=== PATIENT | male | born 1955 | race Caucasian/White ===

== ENCOUNTER 2023-01-04 18:44 | Inpatient (IN) | payer MEDICARE, SELFPAY ==
--- NOTE | ~2023-01-04 | XR_ITS ---
EXAMINATION: XR chest 1V DATE: 01/04/2023 19:12 INDICATION: Fall with left hip fracture TECHNIQUE: frontal view of the chest was obtained. COMPARISON: None FINDINGS: Linear and bandlike discoid atelectasis at the bilateral lung bases. There is also mild right apical pleural-parenchymal scarring. No other airspace opacities, pulmonary edema, pleural effusion or pneum othorax. Heart size is normal. Atherosclerotic aorta. A few old left rib fractures. IMPRESSION: 1. Mild right apical pleural-parenchymal scarring and mild bibasilar atelectasis. Reviewed, dictated and finalized at location A. ER DRIVER IMPRESSION: 1. Mild right apical pleural-parenchymal scarring and mild bibasilar atelectasi s.
--- NOTE | ~2023-01-04 | XR_ITS ---
EXAMINATION: XR hip LT 2V w AP pelvis DATE: 01/04/2023 19:12 INDICATION: Left hip pain post fall TECHNIQUE: Anteroposterior view of the pelvis and anteroposterior and cross-table lateral views of th e left hip were obtained. COMPARISON: None. FINDINGS: Transcervical fracture of the proximal left femur with 2 cm proximal migration, 20 degree varus angul ation and some external rotation. No other fractures identified. Mild osteoarthritis at the bilateral hip and sacroiliac joints. IMPRESSION: 1. Displaced, angulated and externally rotated transcervical fracture of the proximal left femur. Reviewed, dictated and finalized at location A. RAMMING DIRECTOR IMPRESSION: 1. Displaced, angulated and externally rotated transcervical fracture of the pr oximal left femur.
--- NOTE | ~2023-01-04 | XR_ITS ---
EXAMINATION: XR hip LT 1V DATE: 01/06/2023 11:29 INDICATION: Left hip replacement. Postop. TECHNIQUE: A single view of left hip was obtained. COMPARISON: Pelvis and left hip radiographs 01/04/2023 FINDINGS: There is a bipolar left hip hemiarthroplasty in near-anatomic alignment. No fracture. There is gas in the soft tissues, consistent with recent surgery. IMPRESSION: 1. Bipolar left hip hemiarthroplasty in near-anatomic alignment. Reviewed, dictated and finalized at location A. MA CENTER TECHNICIAN
[2023-01-04 18:42] VITALS: BP 174/84; PULSE 69; RESP 13; TEMP 36.6; O2SAT 100
--- NOTE | 2023-01-04 18:52 | PC.NURSE ---
Spoke to pts sister who states, please for the love of God do not give him Ativan. It makes him combative. Please put it in his chart as an allergy or an adverse reaction.
[2023-01-04] MEDS: fentaNYL CITRATE INJ (*CRX) 100 MCG/2 ML VIAL 50 MCG IV PUSH ×2 (19:43→22:25)
--- NOTE | 2023-01-04 19:51 | ED.FALL ---
HPI - Fall General Chief Complaint: Fall Stated Complaint: fall, hip fx Time Seen by Provider: 01/04/23 19:28 History of Present Illness HPI Narrative: This is a 67-year-old male, with history of arthritis, CHF and chronic pulmonary disease (disease requiring 4 L of oxygen at baseline), brought in by EMS after a fall at home with left hip pain. The patient states he was standing in his kitchen when he turned and felt a pop in the left hip and fell. He denies head injury or loss of consciousness. He denies preceding chest pain, palpitations or shortness of breath. He denies similar symptoms since then. He rates the pain 9/10 and is described as dull. He has no complaints at this time. Related Data Home Medications Medication Instructions Recorded Confirmed albuterol sulfate 90 mcg/actuation 2 puff inhalation QID 01/05/23 01/05/23 aerosol inhaler carvedilol 6.25 mg tablet 6.25 mg PO DAILY 01/05/23 01/05/23 finasteride 5 mg tablet 5 mg PO DAILY 01/05/23 01/05/23 guaifenesin 600 mg tablet, 600 mg PO BID 01/05/23 01/05/23 extended release 12 hr morphine 15 mg tablet,extended 15 mg PO BID 01/05/23 01/05/23 release oxycodone 10 mg tablet 10 mg PO Q4H PRN PAIN 01/05/23 01/05/23 prednisone 10 mg tablet 10 mg PO DAILY 01/05/23 01/05/23 sacubitril 24 mg-valsartan 26 mg 1 tablet PO DAILY 01/05/23 01/05/23 tablet (Entresto) tamsulosin 0.4 mg capsule 0.4 mg PO HS 01/05/23 01/05/23 Allergies Allergy/AdvReac Type Severity Reaction Status Date / Time hydrocodone Allergy Unknown Unknown Verified 01/04/23 18:57 lorazepam [From Ativan] Allergy Irritable Verified 01/04/23 22:43 quetiapine [From Seroquel] Allergy Confusion Verified 01/04/23 18:58 CODEINE Allergy Unknown Unknown Uncoded 01/04/23 18:57 NONE Allergy Unknown Unknown Uncoded 01/04/23 18:57 CODEINE (Generic Allergy) Allergy Y Uncoded 01/04/23 18:57 Review of Systems Review of Systems: CONSTITUTIONAL: Denies fever, chills, or sweats. CARDIOVASCULAR: Denies chest pain, palpitations, or edema. RESPIRATORY: Chronic dyspnea denies cough GASTROINTESTINAL: Denies abdominal pain, nausea, vomiting, or diarrhea. GENITOURINARY: Denies dysuria or hematuria. SKIN: Denies rash or itching. MUSCULOSKELETAL: Left hip pain denies back pain, or myalgia. NEUROLOGIC: Denies headache, numbness, dizziness, or weakness. PSYCHIATRIC: Denies anxiety or depression. [facility] Past Medical History Medical History (Updated 01/05/23 @ 02:42 by Yosvany Meléndez MD) Arthritis Chronic pulmonary disease Congestive heart failure Social History Social History (Updated 01/04/23 @ 20:01 by Yosvany Meléndez MD) Smoking packs per day: 0.3 Smoking cigarettes per day: 6.0 Smoking status: Current every day smoker Tobacco type: cigarettes Alcohol intake: current Drinks per week: 30 Substance use: current Substance use type: marijuana Last use: 01/04/2023 Lack of Transportation: No Lack of Food: Never True Current Housing: I Have Housing Concerned About Future Housing: No Difficulty Paying Gas/Electric Bills: No Difficulty Paying for Meds: No Currently Unemployed: No Education: Trade/Vocational Certificate Difficulty w/ Childcare or Family Care: No Spiritual care concerns: No Exam Narrative: GENERAL: Well-appearing, thin, and in no acute distress. HEAD: Normocephalic, atraumatic. EYES: PERRLA and EOMI. ENT: Nares clear, no rhinorrhea or epistaxis. Mucous membranes dry. Oropharynx without tonsillar hypertrophy exudate or other lesions. Bilateral TMs pearly dinh nonbulging. No hematemesis NECK: Supple. No midline spine tenderness to palpation, no step-off or crepitus CHEST: Clear to auscultation. No respiratory distress. No wheezes rales or rhonchi HEART: Regular rate and rhythm. No murmur heard. Normal peripheral pulses. ABDOMEN: Soft, nontender, nondistended, normal active bowel sounds. EXTREMITIES: The left leg is shortened and externa
[2023-01-04 20:33] LABS: Basophils Percent Auto 0.2 % (0.2-1.2); Hematocrit 34.3 % (42.0-52.0); Hemoglobin 10.6 g/dL (14.0-18.0); Immature Granulocyte Absolute 0.17 K/mm3 (0.00-0.031); Immature Granulocyte Percent A 1.3 % (0-0.5); Lymphocytes Absolute Auto 1.46 K/mm3 (0.9-3.2); Lymphocytes Percent Auto 10.8 % (18.3-44.2); Mean Corpuscular HGB Conc 30.9 g/dl (32-36); Mean Corpuscular Hemoglobin 30.9 pg (26-34); Mean Platelet Volume 10.2 fl (7.4-10.4); Monocytes Absolute Auto 1.2 K/mm3 (0.1-0.6); Monocytes Percent Auto 8.6 % (2.6-8.5); Neutrophils Absolute Auto 10.7 K/mm3 (1.3-6.7); Neutrophils Percent Auto 79.1 % (45.5-73.1); Platelet Count Result 254 k/mm3 (150-375); Red Blood Count 3.43 M/mm3 (4.6-6.20); Red Cell Distribution Width 14.3 % (11.5-14.5); White Blood Count 13.5 K/mm3 (4.5-10.0)
[2023-01-04 20:45] LABS: INR 0.9; Prothrombin Time 12.2 Seconds (11.1-14.7)
[2023-01-04 20:46] LABS: Partial Thromboplastin Time 26.3 SECONDS (22.3-36.8)
[2023-01-04 20:59] VITALS: BP 181/87; PULSE 72; RESP 12; O2SAT 95
[2023-01-04 21:09] LABS: Alanine Aminotransferase 24 U/L (6-50); Albumin Level 3.8 g/dL (3.5-5.1); Alkaline Phosphatase 58 U/L (38-126); Anion Gap 7 mmol/L (8-16); Aspartate Amino Transferase 22 U/L (17-59); Bilirubin,Total 0.3 mg/dL (0.2-1.3); Blood Urea Nitrogen 24 mg/dL (9-20); Calcium 8.8 mg/dL (8.4-10.2); Carbon Dioxide 27 mmol/L (22-30); Chloride 101 mmol/L (98-107); Estimated CRCL calculation 93 ml/min; Estimated Glomerular Filt Rate > 60; Glucose 118 mg/dL (65-110); Potassium 4.9 mmol/L (3.4-5.0); Sodium 135 mmol/L (137-145)
[2023-01-04 21:44] VITALS: PULSE 73; RESP 15
[2023-01-04] MEDS: ALBUTEROL SULFATE NEB 2.5 MG/3 ML INH INHALATION (21:44)
[2023-01-04] MEDS: IPRATROPIUM BR 0.02% INH SOLN 0.5 MG/2.5 ML VIAL INHALATION (21:44)
--- NOTE | 2023-01-04 21:49 | PCRCNOTE ---
Updraft treatment delayed due to stat ED orders not being delivered via [facility]era.
[2023-01-04 21:52] VITALS: PULSE 70; RESP 14
[2023-01-04] MEDS: oxyCODONE HCL (*CRX) 5 MG TAB IR 10 MG PO (22:25)
[2023-01-04 22:34] VITALS: BP 175/94; PULSE 86; RESP 12; O2SAT 99
--- NOTE | 2023-01-04 22:43 | PC.NURSE ---
Per family and patient, Seroquel and Ativan makes patient very angry and agitated.
[2023-01-04 22:45] VITALS: BP 167/87; PULSE 68; RESP 10; O2SAT 98
--- NOTE | 2023-01-04 23:15 | PC.NURSE ---
Assumed care of pt. Report from SHELBI Rhodes. Pt sleeping on right side, resp even and nonlabored.
[2023-01-05] VITALS (22 sets, daily range): BP systolic 151–163; BP diastolic 62–75; PULSE 70–87; RESP 15–18; TEMP 36.4–37.1; O2SAT 93–98; BMI 21.3
--- NOTE | 2023-01-05 00:29 | ADMGEN ---
This patient, Tom Juarez, was admitted to Medical Room 246-. Patient/family oriented to hospital policies and general routines including ID bracelet, bed and alarms, visiting hours, pain management, procedures, bathroom and other care routines, personal items, smoking policy, room service/diet, and visiting hours. Information on how to activate the Rapid Response Team has been discussed. Patient/Family are encouraged to report perceived risks to care and to ask questions if they do not understand what they are told or what they should do.
--- NOTE | 2023-01-05 00:47 | PM.IMHP ---
H&P: HPI History of Present Illness Date/Time: 01/05/23 00:47 Chief Complaint: hip fx Narrative: This is a 67-year-old male with end-stage COPD/emphysema on supplemental oxygen at home 5 L by nasal cannula patient had a twist of his hip when it popped out and preliminary workup shows fracture EXAMINATION: XR hip LT 2V w AP pelvis DATE: 01/04/2023 19:12 INDICATION: Left hip pain post fall TECHNIQUE: Anteroposterior view of the pelvis and anteroposterior and cross-table lateral views of the left hip were obtained. COMPARISON: None. FINDINGS: Transcervical fracture of the proximal left femur with 2 cm proximal migration, 20 degree varus angulation and some external rotation. No other fractures identified. Mild osteoarthritis at the bilateral hip and sacroiliac joints. IMPRESSION: 1. Displaced, angulated and externally rotated transcervical fracture of the proximal left femur. EXAMINATION: XR chest 1V DATE: 01/04/2023 19:12 INDICATION: Fall with left hip fracture TECHNIQUE: frontal view of the chest was obtained. COMPARISON: None FINDINGS: Linear and bandlike discoid atelectasis at the bilateral lung bases. There is also mild right apical pleural-parenchymal scarring. No other airspace opacities, pulmonary edema, pleural effusion or pneumothorax. Heart size is normal. Atherosclerotic aorta. A few old left rib fractures. IMPRESSION: 1. Mild right apical pleural-parenchymal scarring and mild bibasilar atelectasis. Review of Systems Review of Systems: left hip pain Constitutional: Constitutional: Denies chills, Denies fatigue, Denies fever(s), Denies malaise, Denies night sweats and Denies weakness Eyes: Eyes: Denies change in vision ENT: Denies dysphagia and Denies odynophagia Cardiovascular: Cardiovascular: Denies chest pain, Denies radiating jaw, neck or arm pain and Denies palpitations Respiratory: Respiratory: Denies cough, Denies excessive phlegm production, Reports dyspnea and Reports wheezing Gastrointestinal: Gastrointestinal: Denies abdominal pain, Denies dyspepsia, Denies heartburn, Denies diarrhea, Denies nausea and Denies vomiting Genitourinary: Genitourinary: Denies dysuria Musculoskeletal: Musculoskeletal: Reports deformity and Reports arthralgias (L hip) Integumentary/Breasts: Skin/Breast: Denies rash Neurologic: Denies focal weakness and Denies Sensory deficit (Neuro) Psychiatric: Psychiatric: Reports no additional psychiatric complaints and Reports as per HPI Endocrine: Endocrine: Denies cold intolerance, Denies flushing, Denies heat intolerance, Denies polyphagia, Denies polydipsia and Denies palpitations Hematologic/Lymphatic: Hematologic/Lymphatic: Reports no additional hematologic/lymphatic complaints and Reports as per HPI Allergic/Immunologic: Allergic/Immunologic: Reports no additional allergic/immunologic complaints and Reports as per HPI PMFSH Past Medical History Medical History (Updated 01/05/23 @ 00:57 by Maxx Wilson MD) Arthritis Chronic pulmonary disease Congestive heart failure Social History Social History (Updated 01/04/23 @ 20:01 by Yosvany Meléndez MD) Smoking packs per day: 0.3 Smoking cigarettes per day: 6.0 Smoking status: Current every day smoker Tobacco type: cigarettes Alcohol intake: current Drinks per week: 30 Substance use: current Substance use type: marijuana Last use: 01/04/2023 Lack of Transportation: No Lack of Food: Never True Current Housing: I Have Housing Concerned About Future Housing: No Difficulty Paying Gas/Electric Bills: No Difficulty Paying for Meds: No Currently Unemployed: No Education: Trade/Vocational Certificate Difficulty w/ Childcare or Family Care: No Spiritual care concerns: No Meds Home Medications and Allergies Home Medications Medication Instructions Recorded Confirmed Type albuterol sulfate 90 mcg/actuation 2 puff inhalation QID 01/05/2301/05
[2023-01-05] MEDS: ALBUTEROL SULFATE NEB 2.5 MG/3 ML INH INHALATION ×4 (02:30→20:11)
[2023-01-05] MEDS: HYDROmorphone HCL INJ (*CRX) 1 MG/ML SYR (02:30)
[2023-01-05] MEDS: IPRATROPIUM BR 0.02% INH SOLN 0.5 MG/2.5 ML VIAL INHALATION ×4 (02:30→20:11)
[2023-01-05] MEDS: TAMSULOSIN HCL 0.4 MG CAPSULE PO ×2 (03:30→20:06)
[2023-01-05] MEDS: oxyCODONE HCL (*CRX) 5 MG TAB IR 10 MG PO ×4 (03:31→22:27)
[2023-01-05] MEDS: HYDROmorphone HCL INJ (*CRX) 1 MG/ML SYR IV PUSH ×4 (05:18→20:45)
[2023-01-05 06:12] LABS: Basophils Percent Auto 0.4 % (0.2-1.2); Eosinophils Absolute Auto 0.1 K/mm3 (0-0.3); Eosinophils Percent Auto 1.2 % (0-4.4); Hematocrit 33.1 % (42.0-52.0); Hemoglobin 10.6 g/dL (14.0-18.0); Immature Granulocyte Absolute 0.11 K/mm3 (0.00-0.031); Lymphocytes Absolute Auto 2.42 K/mm3 (0.9-3.2); Lymphocytes Percent Auto 21.5 % (18.3-44.2); Mean Corpuscular Hemoglobin 31.1 pg (26-34); Mean Corpuscular Volume 97.1 fl (80-100); Mean Platelet Volume 9.6 fl (7.4-10.4); Monocytes Absolute Auto 1.1 K/mm3 (0.1-0.6); Monocytes Percent Auto 9.3 % (2.6-8.5); Neutrophils Absolute Auto 7.5 K/mm3 (1.3-6.7); Neutrophils Percent Auto 66.6 % (45.5-73.1); Platelet Count Result 232 k/mm3 (150-375); Red Blood Count 3.41 M/mm3 (4.6-6.20); White Blood Count 11.3 K/mm3 (4.5-10.0)
[2023-01-05 06:25] LABS: Anion Gap 9 mmol/L (8-16); Blood Urea Nitrogen 18 mg/dL (9-20); Calcium 8.7 mg/dL (8.4-10.2); Carbon Dioxide 29 mmol/L (22-30); Chloride 99 mmol/L (98-107); Estimated CRCL calculation 108 ml/min; Estimated Glomerular Filt Rate > 60; Glucose 99 mg/dL (65-110); Potassium 3.9 mmol/L (3.4-5.0); Sodium 137 mmol/L (137-145)
[2023-01-05] MEDS: carvediloL 6.25 MG TABLET PO ×2 (07:59→20:06)
[2023-01-05] MEDS: FINASTERIDE 5 MG TABLET PO (07:59)
[2023-01-05] MEDS: predniSONE 10 MG TABLET PO (08:00)
[2023-01-05] MEDS: guaiFENesin 12 HR 600 MG TABCR PO ×2 (08:00→20:07)
[2023-01-05] MEDS: SACUBITRIL/VALSARTAN 24-26 MG TABLET 1 TAB PO ×2 (08:00→20:06)
[2023-01-05] MEDS: MORPHINE SULFATE (*CRX) 15 MG TABCR PO (08:01)
--- NOTE | 2023-01-05 09:51 | PM.CNOR ---
Assessment and Plan Assessment and plan (1) Closed fracture of neck of left femur: Qualifiers: Encounter type: initial encounter Qualified Code(s): S72.002A - Fracture of unspecified part of neck of left femur, initial encounter for closed fracture Code(s): S72.002A - Fracture of unspecified part of neck of left femur, initial encounter for closed fracture Status: Acute Assessment and Plan: History, exam and radiographs reviewed with the patient and his sister at bedside who is medical power of ip attorney. Patient is alert and oriented x3 at time of exam. Radiographs of the left hip reveal a displaced, angulated and externally rotated transcervical fracture of the proximal left femur. The fracture type and injury as well as radiographs discussed with the patient and family. Operative and nonoperative treatment options reviewed. Risk of nonunion, malunion or late displacement discussed. Stiffness, pain and possible dysfunction of the joint discussed. The patients questions were answered. The patient desires operative treatment. Discussed Left Hip Hemiarthroplasty by Dr. Oconnor Risks of surgery including but not limited to neurovascular damage, wound complications, blood clot, pulmonary embolus, stroke, myocardial infarction, anesthetic risks up to and including were reviewed. Patient family understand increase risk of given patient's current medical condition. Continued pain and possible dysfunction were explained. No guarantees were offered. The patient understands and wishes to proceed. Plan: Left Hip Hemiarthroplasty by Dr. Oconnor NPO at midnight. Obtain consent. Pain control. Bedrest. HOLD anticoagulation. Dispo: Patient will require [facility] vs. SNF at discharge. (2) Congestive heart failure: Code(s): I50.9 - Heart failure, unspecified Status: Acute (3) COPD (chronic obstructive pulmonary disease): Qualifiers: COPD type: unspecified COPD Qualified Code(s): J44.9 - Chronic obstructive pulmonary disease, unspecified Code(s): J44.9 - Chronic obstructive pulmonary disease, unspecified Status: Acute Plan Discussed history, exam, radiographs and surgical planning with attending physician and consult his surgeon, Dr. Oconnor. Agrees with current plan is indicated above. No further recommendations at this time. Plan for surgical intervention on January 06. History of Present Illness HPI Consult date: 01/05/23 Chief complaint: Lt Femur Neck Fracture Narrative: 67-year-old male presented to the emergency room from home after a fall, hearing his left hip pop and inability to bear weight. Patient is in end stage COPD and CHF on hospice. Hospice was terminated upon admission to the hospital. Radiographs of the left hip reveal a displaced, angulated and externally rotated transcervical fracture of the proximal left femur. Orthopedic consult requested. Patient admitted for further evaluation and pain control. Review of Systems Constitutional: Constitutional: Reports no additional constitutional complaints, Denies chills, Denies fatigue, Denies fever(s), Denies headache(s) and Denies weakness Eyes: Eyes: Denies change in vision ENT: Reports Normal hearing present and Denies headache(s) Cardiovascular: Cardiovascular: Denies chest pain Gastrointestinal: Gastrointestinal: Denies constipation, Denies diarrhea, Denies nausea and Denies vomiting Genitourinary: Genitourinary: Denies hematuria and Denies dysuria Musculoskeletal: Musculoskeletal: Reports as per HPI, Denies numbness and Denies tingling Integumentary/Breasts: Skin/Breast: Reports as per HPI Neurologic: Reports as per HPI, Reports Normal hearing present, Denies headache(s), Denies numbness, Denies tingling and Denies weakness Psychiatric: Psychiatric: Reports no additional psychiatric complaints Endocrine: Endocrine: Reports no additional endocrine complaints and Denies fatigue Dustin
--- NOTE | 2023-01-05 10:45 | PM.IMPN ---
Progress Note: A&P Assessment and Plan (1) Closed fracture of neck of left femur: Qualifiers: Encounter type: initial encounter Qualified Code(s): S72.002A - Fracture of unspecified part of neck of left femur, initial encounter for closed fracture Code(s): S72.002A - Fracture of unspecified part of neck of left femur, initial encounter for closed fracture Status: Acute Assessment and Plan: Patient had a fall at home resulting in a fracture of the left femur. Orthopedics consulted. DVT prophylaxis, PT and OT per Orthopedic recommendations. Analgesics p.r.n.. (2) End stage chronic obstructive pulmonary disease: Code(s): J44.9 - Chronic obstructive pulmonary disease, unspecified Status: Acute Assessment and Plan: Patient is in hospice and plans to return once he gets home. Patient on a prednisone taper from a recent treatment of COPD exacerbation. Prednisone taper: 20 mg through 01/07 then 10 mg for 5 days (finish on 01/12) Continue home meds (3) Congestive heart failure: Code(s): I50.9 - Heart failure, unspecified Status: Acute Assessment and Plan: Continue Coreg and Entresto Subjective Date/time seen: 01/05/23 10:45 Interval history: Was in the room at the same time with nurse practitioner from Orthopedics. Patient is wanting surgery at this time. I discussed with patient that he will need rehab after after his surgery and he is agreeable to this. He was on hospice for his end-stage COPD and CHF although this was terminated when he came to the hospital. The plan is to go back on hospice care once he returns home eventually. He ambulates with a cane at home and is pretty much independent. Hospice comes to his house twice weekly. He is having active left hip pain at the time of evaluation. Exam Narrative: GENERAL: Comfortable, no acute distress HENMT: moist mucous membranes EYES: EOM intact b/l RESPIRATORY: clear to auscultation although distant breath sounds CARDIO: RRR GI: soft, nontender, bowel sounds present SKIN: no rashes EXTREMITIES: no edema, redness or tenderness Objective Data Vital Signs Vital Signs: Vital Signs - 24 hr 01/04/23 18:42 01/04/23 20:59 01/04/23 21:44 Temperature 97.9 F Pulse Rate 69 72 73 Respiratory Rate 13 12 15 Blood Pressure 174/84 H 181/87 H Pulse Oximetry 100 95 Oxygen Delivery Nasal Cannula Oxygen Flow Rate 4 01/04/23 21:52 01/04/23 22:34 01/04/23 22:45 Temperature Pulse Rate 70 86 68 Respiratory Rate 14 12 10 L Blood Pressure 175/94 H 167/87 H Pulse Oximetry 99 98 Oxygen Delivery Oxygen Flow Rate 01/05/23 00:29 01/05/23 00:18 01/05/23 02:30 Temperature 97.5 F L Pulse Rate 70 71 Respiratory Rate 17 Blood Pressure 157/67 H Pulse Oximetry 96 95 Oxygen Delivery Nasal Cannula Oxygen Flow Rate 4 01/05/23 02:30 01/05/23 03:35 01/05/23 04:09 Temperature Pulse Rate 70 71 76 Respiratory Rate 18 18 Blood Pressure Pulse Oximetry Oxygen Delivery Oxygen Flow Rate 01/05/23 05:21 01/05/23 07:59 01/05/23 08:40 Temperature 98.0 F Pulse Rate 72 85 73 Respiratory Rate 18 18 Blood Pressure 151/62 H Pulse Oximetry 96 Oxygen Delivery Oxygen Flow Rate 01/05/23 08:54 Temperature Pulse Rate 74 Respiratory Rate 18 Blood Pressure Pulse Oximetry Oxygen Delivery Oxygen Flow Rate Intake/Output Intake/Output: Intake & Output 01/02/23 01/03/23 01/04/23 01/05/23 23:59 23:59 23:59 23:59 Output Total 1500 Balance -1500 Meds/Results Medications: Active Medications Generic Name Dose Route Start Last Admin Trade Name Freq PRN Reason Stop Dose Admin Al Hydrox/Mg Hydrox/Simethicone 30 ml 01/05/23 00:46 Mag Hydrox/Al Hydrox/Simeth 30 Ml Udc PO Q6H PRN Indigestion Albuterol 2.5 mg 01/05/23 02:00 01/05/23 08:45 Albuterol Sulfate Neb 2.5 M
--- NOTE | 2023-01-05 17:27 | WPDANESEPP ---
Anes - Eval Pre Procedure Procedure: Operation Date: 01/06/23 09:00 Proposed Procedures p Left Bipolar Hip Replacement - Brian Oconnor MD Date/Time: 01/05/23 17:27 Pre Op Diagnosis: Lt Femur Neck Fracture Patient Data Age: 67 Gender: M Height: 1.75 m Weight: 65.5 kg Last Vital Signs Temp 97.6 F 01/05/23 14:00 Pulse 83 01/05/23 14:00 Resp 15 01/05/23 14:00 BP 163/74 H 01/05/23 14:00 Pulse Ox 93 01/05/23 14:00 O2 Del Method Nasal Cannula 01/05/23 13:39 O2 Flow Rate 4 01/05/23 13:39 Allergies Allergy/AdvReac Type Severity Reaction Status Date / Time hydrocodone Allergy Unknown Unknown Verified 01/04/23 18:57 lorazepam [From Ativan] Allergy Irritable Verified 01/04/23 22:43 quetiapine [From Seroquel] Allergy Confusion Verified 01/04/23 18:58 CODEINE Allergy Unknown Unknown Uncoded 01/04/23 18:57 NONE Allergy Unknown Unknown Uncoded 01/04/23 18:57 CODEINE (Generic Allergy) Allergy Y Uncoded 01/04/23 18:57 Home Medications Medication Instructions Recorded Confirmed Type albuterol sulfate 90 mcg/actuation 2 puff inhalation QID 01/05/23 01/05/23 History aerosol inhaler carvedilol 6.25 mg tablet 6.25 mg PO DAILY 01/05/23 01/05/23 History finasteride 5 mg tablet 5 mg PO DAILY 01/05/23 01/05/23 History guaifenesin 600 mg tablet, 600 mg PO BID 01/05/23 01/05/23 History extended release 12 hr morphine 15 mg tablet,extended 15 mg PO BID 01/05/23 01/05/23 History release oxycodone 10 mg tablet 10 mg PO Q4H PRN PAIN 01/05/23 01/05/23 History prednisone 10 mg tablet 10 mg PO DAILY 01/05/23 01/05/23 History sacubitril 24 mg-valsartan 26 mg 1 tablet PO DAILY 01/05/23 01/05/23 History tablet (Entresto) tamsulosin 0.4 mg capsule 0.4 mg PO HS 01/05/23 01/05/23 History Laboratory Tests 01/04/23 01/05/23 20:20 05:58 WBC 13.5 H K/mm3 11.3 H K/mm3 (4.5-10.0) (4.5-10.0) RBC 3.43 L M/mm3 3.41 L M/mm3 (4.6-6.20) (4.6-6.20) Hgb 10.6 L g/dL 10.6 L g/dL (14.0-18.0) (14.0-18.0) Hct 34.3 L % 33.1 L % (42.0-52.0) (42.0-52.0) MCV 100.0 fl 97.1 fl (80-100) (80-100) MCH 30.9 pg 31.1 pg (26-34) (26-34) MCHC 30.9 L g/dl 32.0 g/dl (32-36) (32-36) RDW 14.3 % 14.0 % (11.5-14.5) (11.5-14.5) Plt Count 254 k/mm3 232 k/mm3 (150-375) (150-375) MPV 10.2 fl 9.6 fl (7.4-10.4) (7.4-10.4) Immature Gran % (Auto) 1.3 H % 1.0 H % (0-0.5) (0-0.5) Neut % (Auto) 79.1 H % 66.6 % (45.5-73.1) (45.5-73.1) Lymph % (Auto) 10.8 L % 21.5 % (18.3-44.2) (18.3-44.2) [place] % (Auto) 8.6 H % 9.3 H % (2.6-8.5) (2.6-8.5) Eos % (Auto) 0.0 % 1.2 % (0-4.4) (0-4.4) Baso % (Auto) 0.2 % 0.4 % (0.2-1.2) (0.2-1.2) Lymph # (Auto) 1.46 K/mm3 2.42 K/mm3 (0.9-3.2) (0.9-3.2) [place] # (Auto) 1.2 H K/mm3 1.1 H K/mm3 (0.1-0.6) (0.1-0.6) Eos # (Auto) 0.0 K/mm3 0.1 K/mm3 (0-0.3) (0-0.3) Baso # (Auto) 0.0 K/mm3 0.0 K/mm3 (0.0-0.1) (0.0-0.1) Abs Immat Gran (auto) 0.17 H K/mm3 0.11 H K/mm3 (0.00-0.031) (0.00-0.031) Absolute Neuts (auto) 10.7 H K/mm3 7.5 H K/mm3 (1.3-6.7) (1.3-6.7) Absolute Nucleated RBC 0.0 K/mm3 0.0 K/mm3 (0.0-0.012) (0.0-0.012) Nucleated RBC % 0.0 % 0.0 % (0.0-0.2) (0.0-0.2) PT 12.2 Seconds (11.1-14.7) INR 0.9 APTT 26.3 SECONDS (22.3-36.8) Sodium 135 L mmol/L 137 mmol/L (137-145) (137-145) Potassium 4.9 mmol/L 3.9 mmol/L (3.4-5.0) (3.4-5.0) Chloride 101 mmol/L 99 mmol/L (98-107) (98-107) Carbon Dioxide 27 mmol/L 29 mmol/L (22-30) (22-30) Anion Gap 7 L mmol/L 9 mmol/L (8-16) (8-16) BUN 24 H mg/dL 18 mg/dL (9-20) (9-20) Creatinine 0.60 L mg/dL 0.50 L mg/dL (0.7-1.3) (0.7-1.3) Estim Creat Clear Calc 93 ml/min 108 ml/min Estimated GFR > 60 > 60 (59 - ) (59 - ) Glucose 118 H mg/dL 99 mg/dL (65-110) (65-110) Calcium 8.
[2023-01-05] MEDS: KETOROLAC 15 MG/ML VIAL (*BKC) IV PUSH (18:08)
[2023-01-05] MEDS: diazePAM (*CRX) 5 MG TABLET PO (20:06)
[2023-01-06] VITALS (19 sets, daily range): BP systolic 86–163; BP diastolic 57–77; PULSE 66–87; RESP 12–20; TEMP 36.2–37.2; O2SAT 95–100
[2023-01-06] MEDS: ALBUTEROL SULFATE NEB 2.5 MG/3 ML INH INHALATION ×3 (02:41→13:05)
[2023-01-06] MEDS: IPRATROPIUM BR 0.02% INH SOLN 0.5 MG/2.5 ML VIAL INHALATION ×2 (02:41→07:06)
[2023-01-06] MEDS: oxyCODONE HCL (*CRX) 5 MG TAB IR 10 MG PO (05:07)
--- NOTE | 2023-01-06 06:04 | PC.NURSE ---
pt crawling out of bed multiple times throughout the night (01/06). Pt redirected multiple times and was unable to comprehend instructions.
[2023-01-06 06:06] LABS: Hematocrit 33.2 % (42.0-52.0); Hemoglobin 11.1 g/dL (14.0-18.0); Mean Corpuscular HGB Conc 33.4 g/dl (32-36); Mean Corpuscular Hemoglobin 30.8 pg (26-34); Mean Corpuscular Volume 92.2 fl (80-100); Mean Platelet Volume 9.8 fl (7.4-10.4); Platelet Count Result 244 k/mm3 (150-375); Red Cell Distribution Width 13.6 % (11.5-14.5); White Blood Count 11.4 K/mm3 (4.5-10.0)
[2023-01-06 06:22] LABS: Alanine Aminotransferase 18 U/L (6-50); Albumin Level 3.5 g/dL (3.5-5.1); Alkaline Phosphatase 73 U/L (38-126); Anion Gap 7 mmol/L (8-16); Aspartate Amino Transferase 19 U/L (17-59); Bilirubin,Total 0.7 mg/dL (0.2-1.3); Blood Urea Nitrogen 17 mg/dL (9-20); Calcium 8.7 mg/dL (8.4-10.2); Carbon Dioxide 29 mmol/L (22-30); Chloride 94 mmol/L (98-107); Estimated CRCL calculation 108 ml/min; Estimated Glomerular Filt Rate > 60; Glucose 121 mg/dL (65-110); Potassium 3.7 mmol/L (3.4-5.0); Sodium 130 mmol/L (137-145)
--- NOTE | 2023-01-06 07:34 | WPDHPUPDATE1 ---
History and Physical Update Update Date/Time: 01/06/23 07:34 History and Physical has been reviewed, including an updated exam of the patient. There are NO changes in the patient's condition. Risks, benefits, and alternatives have been discussed and questions answered. Patient agrees to proceed with procedure.
--- NOTE | 2023-01-06 07:43 | ECG_ITS ---
Measurements Intervals [place] Rate: 86 P: 66 SD: 161 QRS: -34 QRSD: 146 T: 111 QT: 418 QTc: 503 Interpretive Statements SINUS RHYTHM ATRIAL PREMATURE COMPLEX LEFT AXIS DEVIATION LEFT BUNDLE BRANCH BLOCK BASELINE ARTIFACT- I, II, III ABNORMAL ECG NO PREVIOUS ECG AVAILABLE FOR COMPARISON Electronically Signed On 01-06-2023 9:15:36 [employer] by Lamont Valdivia D.O.
[2023-01-06] MEDS: predniSONE 10 MG TABLET PO (08:08)
[2023-01-06] MEDS: carvediloL 6.25 MG TABLET PO ×2 (08:08→20:33)
[2023-01-06] MEDS: FINASTERIDE 5 MG TABLET PO (08:09)
[2023-01-06] MEDS: SACUBITRIL/VALSARTAN 24-26 MG TABLET 1 TAB PO ×2 (08:09→20:35)
--- NOTE | 2023-01-06 08:40 | PC.NURSE ---
To OR per bed, IV left forearm. Report given to Lelia RN.
[2023-01-06] MEDS: TRANEXAMIC ACID 1,000MG/ISO100 1,000 MG/100 ML BAG 200 MG IVPB (08:50)
--- NOTE | 2023-01-06 09:10 | WPDANESEPPF ---
Anes - Initial Pre Proc Eval Procedure: Operation Date: 01/06/23 09:00 Proposed Procedures p Left Bipolar Hip Replacement - Brian Oconnor MD Date/Time: 01/06/23 09:10 Surgeon: Cindy Ojeda PA-C Pre Op Diagnosis: Lt Femur Neck Fracture Patient Data Age: 67 Gender: M Height: 1.75 m Weight: 65.5 kg Last Vital Signs Temp 37.1 C 01/06/23 05:07 Pulse 86 01/06/23 08:08 Resp 18 01/06/23 07:20 BP 160/73 H 01/06/23 05:07 Pulse Ox 97 01/06/23 07:10 O2 Del Method Nasal Cannula 01/06/23 07:10 O2 Flow Rate 4 01/06/23 07:10 Allergies Allergy/AdvReac Type Severity Reaction Status Date / Time hydrocodone Allergy Unknown Unknown Verified 01/04/23 18:57 lorazepam [From Ativan] Allergy Irritable Verified 01/04/23 22:43 quetiapine [From Seroquel] Allergy Confusion Verified 01/04/23 18:58 CODEINE Allergy Unknown Unknown Uncoded 01/04/23 18:57 NONE Allergy Unknown Unknown Uncoded 01/04/23 18:57 CODEINE (Generic Allergy) Allergy Y Uncoded 01/04/23 18:57 Home Medications Medication Instructions Recorded Confirmed Type albuterol sulfate 90 mcg/actuation 2 puff inhalation QID 01/05/23 01/05/23 History aerosol inhaler carvedilol 6.25 mg tablet 6.25 mg PO DAILY 01/05/23 01/05/23 History finasteride 5 mg tablet 5 mg PO DAILY 01/05/23 01/05/23 History guaifenesin 600 mg tablet, 600 mg PO BID 01/05/23 01/05/23 History extended release 12 hr morphine 15 mg tablet,extended 15 mg PO BID 01/05/23 01/05/23 History release oxycodone 10 mg tablet 10 mg PO Q4H PRN PAIN 01/05/23 01/05/23 History prednisone 10 mg tablet 10 mg PO DAILY 01/05/23 01/05/23 History sacubitril 24 mg-valsartan 26 mg 1 tablet PO DAILY 01/05/23 01/05/23 History tablet (Entresto) tamsulosin 0.4 mg capsule 0.4 mg PO HS 01/05/23 01/05/23 History Laboratory Tests 01/06/23 05:50 WBC 11.4 H K/mm3 (4.5-10.0) RBC 3.60 L M/mm3 (4.6-6.20) Hgb 11.1 L g/dL (14.0-18.0) Hct 33.2 L % (42.0-52.0) MCV 92.2 D fl (80-100) MCH 30.8 pg (26-34) MCHC 33.4 g/dl (32-36) RDW 13.6 % (11.5-14.5) Plt Count 244 k/mm3 (150-375) MPV 9.8 fl (7.4-10.4) Sodium 130 L mmol/L (137-145) Potassium 3.7 mmol/L (3.4-5.0) Chloride 94 L mmol/L (98-107) Carbon Dioxide 29 mmol/L (22-30) Anion Gap 7 L mmol/L (8-16) BUN 17 mg/dL (9-20) Creatinine 0.50 L mg/dL (0.7-1.3) Estim Creat Clear Calc 108 ml/min Estimated GFR > 60 (59 - ) Glucose 121 H mg/dL (65-110) Calcium 8.7 mg/dL (8.4-10.2) Total Bilirubin 0.7 mg/dL (0.2-1.3) AST 19 U/L (17-59) ALT 18 U/L (6-50) Alkaline Phosphatase 73 U/L (38-126) Total Protein 6.0 L g/dL (6.3-8.2) Albumin 3.5 g/dL (3.5-5.1) Patient hx anesthesia problems: none Family hx anesthesia problems: none Results Review: All pre-operative results and documents have been reviewed as part of the pre-operative evaluation. [facility] Past Medical History Medical History Arthritis BPH (benign prostatic hyperplasia) Chronic pulmonary disease Closed fracture of neck of left femur Congestive heart failure COPD (chronic obstructive pulmonary disease) CVA (cerebral vascular accident) End stage chronic obstructive pulmonary disease Hypertension Marijuana smoker Smoker Social History Social History Smoking packs per day: 0.3 Smoking cigarettes per day: 6.0 Smoking status: Current every day smoker Tobacco type: cigarettes Alcohol intake: current Drinks per week: 30 Substance use: current Substance use type: marijuana Last use: 01/04/2023 Lack of Transportation: No Lack of Food: Never True Current Housing: I Have Housing Concerned About Future Housing: No Difficulty Paying Gas/Electric Bills: No Difficulty Paying for Meds: No Currently Unemployed: No Education: Trade/Vocational C
[2023-01-06] MEDS: LACTATED RINGERS 1,000 ML 30 ML IV CONT (09:30)
[2023-01-06] MEDS: ceFAZolin 2 GM/D5W 50 ML 2 GM/50 ML BAG IVPB ×2 (09:40→17:56)
[2023-01-06] MEDS: TRANEXAMIC ACID 1,000 MG/10 ML AMPUL 1000 MG IV PUSH (10:45)
--- NOTE | 2023-01-06 11:06 | W.PM.PROC2 ---
Procedure Note - Detailed Date of Procedure 01/06/23 Pre-op Diagnosis Lt Femur Neck Fracture Post-op Diagnosis Same Procedure Performed LEFT HIP HEMIARTHROPLASTY WITH BIPOLAR PROSTHESIS Surgeon Brian Oconnor MD Anesthesia General Description of Procedure THE PATIENT WAS TAKEN TO THE OPERATING ROOM IN STABLE CONDITION. HE WAS PLACED IN THE LATERAL DECUBITUS AND THE LEFT LOWER EXTREMITY WAS PREPPED AND DRAPED IN THE STERILE FASHION. INCISION WAS MADE IN THE POSTERIOR LATERAL SIDE OF THE HIP, DOWN TO THE FASCIA LAYER. THE FASCIA WAS INCISED. THE HIP WAS EXPOSED. THE SHORT EXTERNAL ROTATORS WERE EXPOSED AND THERE WAS A LARGE HEMATOMA. THE CAPSULE WAS INCISED EXPOSING THE FRACTURE. THE FEMORAL HEAD WAS REMOVED. IT MEASURED 48 MM. AN OSTEOTOMY WAS MADE TO THE FEMORAL NECK ABOUT 1 CM PROXIMAL TO THE LESSER TROCHANTER. NEXT THE FEMUR WAS PREPARED WITH INITIAL CANAL FINDER THEN SEQUENTIAL REAMING UNTIL A #11 REAMER AND BROACHING TILL A #11 BROACH FIT WELL IN 15 OF ANTE VERSION. A +0 STANDARD OFFSET NECK BIPOLAR TRIAL IN A 48 MM SHELL WAS PLACED. THE SHUCK TEST WAS EXCELLENT AND THE STABILITY IN FLEXION AND ROTATION WAS EXCELLENT. LEG LENGTHS WERE GROSSLY EQUAL. TRIALS WERE REMOVED. AN ECHO FRACTURE STEM #11 PRESS FIT STEM WAS PLACED WITH A STANDARD OFFSET IN 15 DEG OF ANTEVERSION. A +0 BIPOLAR HEAD NECK TRIAL WAS PLACED AGAIN. THE HIP WAS TRIALED AND THE STABILITY WAS EXCELLENT WERE THE LEG LENGTHS AND THE SHUCK TEST. NEXT A BIPOLAR HEAD NECK +0 IMPLANT WITH A 48 MM COBALT CHROME SHELL WAS PLACED AND TRIALED ONCE AGAIN SHOWING EXCELLENT STABILITY AND GROSSLY EQUAL LEG LENGTHS. THE WOUND WAS IRRIGATED WITH STERILE BETADINE AND WATER FOR 3 MIN. THEN WASHED AGAIN. THE CAPSULE AND THE EXTERNAL ROTATORS WERE APPROXIMATED WITH NUMBER 1 VICRYL. THE FASCIA WITH No 2 QUIL AND THE SUB CUTANEOUS LAYER WITH 2-0 ABSORBABLE SUTURE WITH A RUNNING 3-0 SUBCUTICULAR LAYER WELL. DERMABOND WAS PLACED AND STERILE DRESSING WAS APPLIED. PATIENT WAS PLACED BACK ON TO THE SUPINE POSITION AND WAS EXTUBATED. Estimated Blood Loss 100 Drains No Pathology None sent Complications No immediate complications Condition Stable Disposition PACU
--- NOTE | 2023-01-06 11:50 | PM.IMPN ---
Progress Note: A&P Assessment and Plan (1) Closed fracture of neck of left femur: Qualifiers: Encounter type: initial encounter Qualified Code(s): S72.002A - Fracture of unspecified part of neck of left femur, initial encounter for closed fracture Code(s): S72.002A - Fracture of unspecified part of neck of left femur, initial encounter for closed fracture Status: Acute Assessment and Plan: Patient had a fall at home resulting in a fracture of the left femur. Appreciate orthopedic surgery consultation and evaluation Will undergo surgical repair today Will need postoperative PT/OT. Will defer DVT prophylaxis weight-bearing status to orthopedics Continue supportive care and analgesics as needed (2) End stage chronic obstructive pulmonary disease: Code(s): J44.9 - Chronic obstructive pulmonary disease, unspecified Status: Acute Assessment and Plan: Patient is in hospice and plans to resume hospice care following hospital discharge Patient on a prednisone taper from a recent treatment of COPD exacerbation. Prednisone taper: 20 mg through 01/07 then 10 mg for 5 days (finish on 01/12) Continue home meds Continue supplemental oxygen as needed to maintain SpO2 >90% Continue scheduled bronchodilators (3) Congestive heart failure: Code(s): I50.9 - Heart failure, unspecified Status: Acute Assessment and Plan: Appears clinically compensated at this time. No evidence of volume overload Continue Coreg and Entresto Continue with cautious IV fluids. Discontinue once patient is tolerating diet postoperatively Plan Mild leukocytosis likely reactive secondary to fracture is improving. Monitor CBC Subjective Date/time seen: 01/06/23 08:30 Interval history: Mr. Juarez is doing well today. He is preparing to go down for surgery. He reports 9/10 left hip pain. Denies shortness of breath, cough or wheezing. No chest pain. He is on supplemental oxygen. Denies fevers or chills. Reports no additional concerns. Review of Systems Review of Systems: All systems reviewed & are unremarkable except as noted in HPI and below Exam Narrative: General: well-nourished, well-appearing 67-year-old male, supine in bed, comfortable, NARD Neuro: awake, alert and oriented x4, speech clear, no focal neuro deficits noted HEENMT: normocephalic, atraumatic, EOMI, sclerae anicteric Respiratory: clear to auscultation bilaterally, nonlabored breathing Cardio: regular rate, regular rhythm with S1-S2 Abdomen: nondistended, normoactive bowel sounds, soft, nontender to palpation Extremities: no edema, erythema, or tenderness to palpation Skin: no rashes or lesions, warm and dry Psych: appropriate mood and affect, judgment and insight intact Objective Data Vital Signs Vital Signs: Vital Signs - 24 hr 01/05/23 13:36 01/05/23 13:39 01/05/23 13:55 Temperature Pulse Rate 78 75 Respiratory Rate 18 18 Blood Pressure Pulse Oximetry 97 Oxygen Delivery Nasal Cannula Oxygen Flow Rate 4 01/05/23 12:04 01/05/23 14:00 01/05/23 16:34 Temperature 97.6 F Pulse Rate 85 83 85 Respiratory Rate 15 Blood Pressure 163/74 H Pulse Oximetry 93 Oxygen Delivery Oxygen Flow Rate 01/05/23 19:32 01/05/23 20:06 01/05/23 20:00 Temperature 98.7 F Pulse Rate 80 80 Respiratory Rate 18 Blood Pressure 158/75 H Pulse Oximetry 98 98 Oxygen Delivery Nasal Cannula Oxygen Flow Rate 4 01/05/23 20:12 01/05/23 20:15 01/05/23 20:32 Temperature Pulse Rate 78 79 Respiratory Rate 18 18 Blood Pressure Pulse Oximetry 96 Oxygen Delivery Nasal Cannula Oxygen Flow Rate 4 01/05/23 20:00 01/06/23 00:00 01/06/23 02:42 Temperature Pulse Rate 87 85 74 Respiratory Rate 18 Blood Pressure Pulse Oximetry Oxygen Delivery Oxygen Flow Rate 01/06/23 04:00 01/06/23 05:07 01/06/23 07:10 Labelle
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
--- NOTE | 2023-01-06 13:06 | PC.NURSE ---
Attempted to give patient PO Diazepam x2. Patient threw pill on first attempt, then spit pill out at RN on second attempt. Provider notified.
[2023-01-06] MEDS: diazePAM INJ (*CRX) 10 MG/2 ML SYRINGE 5 MG IV PUSH (13:14)
[2023-01-06] MEDS: diazePAM INJ (*CRX) 10 MG/2 ML SYRINGE 5 MG IM (14:16)
--- NOTE | 2023-01-06 14:28 | PCPTNOTE ---
Attempted to see for therapy evaluation, pt is a hold her RN. Pt is very aggressive and combative at this time. A code dimitry was called a few moments ago.
--- NOTE | 2023-01-06 14:35 | PCOTNOTE ---
Attempted to see for OT evaluation, pt is a hold her RN. Pt is very aggressive and combative at this time. A code dimitry was called.
[2023-01-06] MEDS: NICOTINE (*PBKC) 21 MG PATCH 1 PATCH TRANSDERM (17:56)
[2023-01-06] MEDS: SODIUM CHLORIDE 0.9% IV 1,000 ML 125 ML IV CONT (17:56)
[2023-01-06] MEDS: diazePAM (*CRX) 5 MG TABLET PO ×2 (20:35→23:10)
[2023-01-06] MEDS: FAMOTIDINE 20 MG TABLET PO (20:35)
[2023-01-06] MEDS: guaiFENesin 12 HR 600 MG TABCR PO (20:35)
[2023-01-06] MEDS: MORPHINE SULFATE (*CRX) 15 MG TABCR PO (20:35)
[2023-01-06] MEDS: TAMSULOSIN HCL 0.4 MG CAPSULE PO (20:35)
[2023-01-06] MEDS: OLANZapine 10 MG INJ VIAL IM (23:59)
[2023-01-07] VITALS (21 sets, daily range): BP systolic 105–165; BP diastolic 56–69; PULSE 66–90; RESP 16–18; TEMP 36.6–37.2; O2SAT 96–100
[2023-01-07] MEDS: ceFAZolin 2 GM/D5W 50 ML 2 GM/50 ML BAG IVPB ×2 (01:55→11:45)
[2023-01-07] MEDS: ALBUTEROL SULFATE NEB 2.5 MG/3 ML INH INHALATION ×4 (02:28→20:50)
[2023-01-07] MEDS: oxyCODONE HCL (*CRX) 5 MG TAB IR 10 MG PO ×3 (05:24→15:30)
[2023-01-07 06:18] LABS: Anion Gap 6 mmol/L (8-16); Blood Urea Nitrogen 15 mg/dL (9-20); Calcium 8.6 mg/dL (8.4-10.2); Carbon Dioxide 31 mmol/L (22-30); Chloride 98 mmol/L (98-107); Estimated CRCL calculation 91 ml/min; Estimated Glomerular Filt Rate > 60; Glucose 103 mg/dL (65-110); Potassium 3.6 mmol/L (3.4-5.0); Sodium 135 mmol/L (137-145)
[2023-01-07 06:19] LABS: Basophils Percent Auto 0.2 % (0.2-1.2); Eosinophils Absolute Auto 0.2 K/mm3 (0-0.3); Eosinophils Percent Auto 2.3 % (0-4.4); Hematocrit 33.3 % (42.0-52.0); Hemoglobin 10.8 g/dL (14.0-18.0); Immature Granulocyte Absolute 0.08 K/mm3 (0.00-0.031); Immature Granulocyte Percent A 0.8 % (0-0.5); Lymphocytes Absolute Auto 1.74 K/mm3 (0.9-3.2); Lymphocytes Percent Auto 17.1 % (18.3-44.2); Mean Corpuscular HGB Conc 32.4 g/dl (32-36); Mean Corpuscular Volume 95.7 fl (80-100); Monocytes Absolute Auto 1.4 K/mm3 (0.1-0.6); Monocytes Percent Auto 13.3 % (2.6-8.5); Neutrophils Absolute Auto 6.8 K/mm3 (1.3-6.7); Neutrophils Percent Auto 66.3 % (45.5-73.1); Platelet Count Result 226 k/mm3 (150-375); Red Blood Count 3.48 M/mm3 (4.6-6.20); Red Cell Distribution Width 13.9 % (11.5-14.5); White Blood Count 10.2 K/mm3 (4.5-10.0)
[2023-01-07] MEDS: guaiFENesin 12 HR 600 MG TABCR PO ×2 (10:06→20:22)
[2023-01-07] MEDS: predniSONE 10 MG TABLET PO (10:06)
[2023-01-07] MEDS: carvediloL 6.25 MG TABLET PO ×2 (10:06→20:23)
[2023-01-07] MEDS: FINASTERIDE 5 MG TABLET PO (10:06)
[2023-01-07] MEDS: SENNA/DOCUSATE SODIUM TABLET 2 TAB PO ×2 (10:06→16:21)
[2023-01-07] MEDS: SACUBITRIL/VALSARTAN 24-26 MG TABLET 1 TAB PO ×2 (10:06→20:22)
[2023-01-07] MEDS: FAMOTIDINE 20 MG TABLET PO ×2 (10:06→20:21)
[2023-01-07] MEDS: polyethylene glycoL 3350 17 GM POWD.PACK PO (10:07)
--- NOTE | 2023-01-07 10:10 | WPDANESPN ---
Anes - Prog Note Post-Op Date/Time: 01/07/23 10:10 Cardiovascular status: normal Respiratory status: normal Airway patency: baseline Mental status: other (sister reports pt has been combative & confused since surgery. pt suffers dementia) Post-Op hydration status: normal Vital Signs: Last Vital Signs Temp 97.9 F 01/07/23 05:31 Pulse 90 01/07/23 10:06 Resp 18 01/07/23 08:39 BP 147/63 H 01/07/23 05:31 Pulse Ox 100 01/07/23 05:31 O2 Del Method Nasal Cannula 01/06/23 20:00 O2 Flow Rate 4 01/06/23 20:00 Pain Score (VAS): 0 I/O: Intake & Output 01/06/23 01/07/23 01/07/23 23:59 07:59 15:59 Intake Total 970 50 Output Total 250 1300 Balance 720 -1250 Laboratory Tests 01/07/23 05:46 01/07/23 05:46 01/07/23 05:46 WBC 10.2 H RBC 3.48 L Hgb 10.8 L Hct 33.3 L MCV 95.7 MCH 31.0 MCHC 32.4 RDW 13.9 Plt Count 226 MPV 10.0 Immature Gran % (Auto) 0.8 H Neut % (Auto) 66.3 Lymph % (Auto) 17.1 L Brooke % (Auto) 13.3 H Eos % (Auto) 2.3 Baso % (Auto) 0.2 Lymph # (Auto) 1.74 Brooke # (Auto) 1.4 H Eos # (Auto) 0.2 Baso # (Auto) 0.0 Abs Immat Gran (auto) 0.08 H Absolute Neuts (auto) 6.8 H Absolute Nucleated RBC 0.0 Nucleated RBC % 0.0 Sodium 135 L Potassium 3.6 Chloride 98 Carbon Dioxide 31 H Anion Gap 6 L BUN 15 Creatinine 0.60 L Estim Creat Clear Calc 91 Estimated GFR > 60 Glucose 103 Calcium 8.6 Patient Feedback: Patient satisfied with anesthetic care.
--- NOTE | 2023-01-07 10:12 | PCOTNOTE ---
Attempted OT evaluation. Per physical therapist and RN patient is a hold as had a difficult evening. Will follow.
[2023-01-07] MEDS: NICOTINE (*PBKC) 21 MG PATCH 1 PATCH TRANSDERM (10:14)
[2023-01-07] MEDS: ENOXAPARIN 40 MG/0.4 ML SYRINGE SUB-Q (10:21)
--- NOTE | 2023-01-07 14:08 | PM.PNORT ---
Progress Note: A&P Assessment and Plan (1) Femoral neck fracture: Code(s): S72.009A - Fracture of unspecified part of neck of unspecified femur, initial encounter for closed fracture Status: Acute Assessment and Plan: POD 2 DOING WELL. HE WILL NEED PRBCS TODAY FOR POSTOP ANEMIA. WILL KEEP MEYER FOR NOW. Subjective Subjective Date/Time Seen: 01/07/23 14:08 Interval history: POD 2 IMPROVING. NO CP OR SOB. NO CALF PAIN Exam Extrem: Other: VSS AFEBRILE DRESSING DRY NV INTACT CALF SOFT NON TENDER, NEG HOMANS SIGN Objective Data Vital Signs Vital Signs: Vital Signs - 24 hr 01/06/23 14:45 01/06/23 15:00 01/06/23 15:30 Temperature 37.2 C 37.1 C 36.5 C Pulse Rate 85 84 84 Respiratory Rate 18 20 19 Blood Pressure 144/67 H 155/67 H 150/73 H Pulse Oximetry 100 100 100 Oxygen Delivery Oxygen Flow Rate 01/06/23 16:30 01/06/23 20:33 01/06/23 20:00 Temperature 36.9 C Pulse Rate 83 86 Respiratory Rate 17 Blood Pressure 127/67 Pulse Oximetry 100 95 Oxygen Delivery Nasal Cannula Oxygen Flow Rate 4 01/06/23 20:35 01/07/23 00:00 01/07/23 02:29 Temperature 36.7 C Pulse Rate 86 80 78 Respiratory Rate 19 18 Blood Pressure 139/62 Pulse Oximetry 100 Oxygen Delivery Oxygen Flow Rate 01/07/23 02:39 01/07/23 04:00 01/07/23 05:31 Temperature 36.6 C Pulse Rate 78 66 71 Respiratory Rate 17 18 Blood Pressure 147/63 H Pulse Oximetry 100 Oxygen Delivery Oxygen Flow Rate 01/07/23 08:30 01/07/23 08:39 01/07/23 10:06 Temperature Pulse Rate 72 74 90 Respiratory Rate 18 18 Blood Pressure Pulse Oximetry Oxygen Delivery Oxygen Flow Rate Intake/Output Intake/Output: Intake & Output 01/04/23 01/05/23 01/06/23 01/07/23 23:59 23:59 23:59 23:59 Intake Total 650 1170 290 Output Total 3000 700 1300 Balance -2350 470 -1010 Meds/Results Medications: Active Medications Generic Name Dose Route Start Last Admin Trade Name Freq PRN Reason Stop Dose Admin Al Hydrox/Mg Hydrox/Simethicone 30 ml 01/05/23 00:46 Mag Hydrox/Al Hydrox/Simeth 30 Ml Udc PO Q6H PRN Indigestion Albuterol 2.5 mg 01/05/23 02:00 01/07/23 08:31 Albuterol Sulfate Neb 2.5 Mg/3 Ml Inh INHALATION 2.5 mg Q6HRT TATIANA Administration Albuterol 2 puff 01/05/23 09:00 Albuterol Sulfate (*Sp) Aerosol 1 Puff INHALATION QID PRN Shortness Of Breath Carvedilol 6.25 mg 01/05/23 09:00 01/07/23 10:06 Carvedilol 6.25 Mg Tablet PO 6.25 mg Q12HR TATIANA Administration Diazepam 5 mg 01/05/23 21:00 01/06/23 20:35 Diazepam (*Crx) 5 Mg Tablet PO 5 mg HS ATTIANA Administration Diazepam 5 mg 01/06/23 12:50 01/06/23 23:10 Diazepam (*Crx) 5 Mg Tablet PO 5 mg Q8H PRN Administration Agitation Enoxaparin Sodium 40 mg 01/07/23 09:00 01/07/23 10:21 Enoxaparin 40 Mg/0.4 Ml Syringe SUB-Q 40 mg DAILY TATIANA Administration Famotidine 20 mg 01/06/23 21:00 01/07/23 10:06 Famotidine 20 Mg Tablet PO 20 mg Q12HR TATIANA Administration Finasteride 5 mg 01/05/23 09:00 01/07/23 10:06 Finasteride 5 Mg Tablet PO 5 mg DAILY TATIANA Administration Guaifenesin 600 mg 01/05/23 09:00 01/07/23 10:06 Guaifenesin 12 Hr 600 Mg Tabcr PO 600 mg Q12HR TATIANA Administration Morphine Sulfate 15 mg 01/05/23 09:00 01/07/23 10:09 Morphine Sulfate (*Crx) 15 Mg Tabcr PO Not Given Q12HR TATIANA Naloxone HCl 0.1 mg 01/06/23 11:58 Naloxone Hcl 0.4 Mg/Ml Vial IV PUSH Q2M PRN Opiate Reversal Nicotine 1 patch 01/06/23 14:25 01/07/23 10:14 Nicotine (*Pbkc) 21 Mg Patch TRANSDERM 1 patch DAILY TATIANA Administration Ondansetron HCl 4 mg 01/06/23 11:58 Ondansetron Inj 4 Mg/2 Ml Vial IV PUSH Q4H PRN Nausea And Vomiting Oxycodone HCl 10 mg 01/05/23 00:44 01/07/23 10:12 Oxycodone Hcl (*Crx) 5 Mg Tab Ir PO 10 mg Q4H PRN Administration Pain Polyethyl
--- NOTE | 2023-01-07 14:15 | PM.PNORT ---
Subjective Subjective Date/Time Seen: 01/07/23 14:15 Objective Data Vital Signs Vital Signs: Vital Signs - 24 hr 01/06/23 14:45 01/06/23 15:00 01/06/23 15:30 Temperature 37.2 C 37.1 C 36.5 C Pulse Rate 85 84 84 Respiratory Rate 18 20 19 Blood Pressure 144/67 H 155/67 H 150/73 H Pulse Oximetry 100 100 100 Oxygen Delivery Oxygen Flow Rate 01/06/23 16:30 01/06/23 20:33 01/06/23 20:00 Temperature 36.9 C Pulse Rate 83 86 Respiratory Rate 17 Blood Pressure 127/67 Pulse Oximetry 100 95 Oxygen Delivery Nasal Cannula Oxygen Flow Rate 4 01/06/23 20:35 01/07/23 00:00 01/07/23 02:29 Temperature 36.7 C Pulse Rate 86 80 78 Respiratory Rate 19 18 Blood Pressure 139/62 Pulse Oximetry 100 Oxygen Delivery Oxygen Flow Rate 01/07/23 02:39 01/07/23 04:00 01/07/23 05:31 Temperature 36.6 C Pulse Rate 78 66 71 Respiratory Rate 17 18 Blood Pressure 147/63 H Pulse Oximetry 100 Oxygen Delivery Oxygen Flow Rate 01/07/23 08:30 01/07/23 08:39 01/07/23 10:06 Temperature Pulse Rate 72 74 90 Respiratory Rate 18 18 Blood Pressure Pulse Oximetry Oxygen Delivery Oxygen Flow Rate 01/07/23 09:43 01/07/23 13:43 01/07/23 13:55 Temperature 36.8 C 36.6 C Pulse Rate 81 78 79 Respiratory Rate 18 18 18 Blood Pressure 105/56 L 110/58 L Pulse Oximetry 100 100 Oxygen Delivery Oxygen Flow Rate 01/07/23 14:05 Temperature Pulse Rate 76 Respiratory Rate 18 Blood Pressure Pulse Oximetry Oxygen Delivery Oxygen Flow Rate Intake/Output Intake/Output: Intake & Output 01/04/23 01/05/23 01/06/23 01/07/23 23:59 23:59 23:59 23:59 Intake Total 650 1170 290 Output Total 3000 700 1300 Balance -2350 470 -1010 Meds/Results Medications: Active Medications Generic Name Dose Route Start Last Admin Trade Name Freq PRN Reason Stop Dose Admin Al Hydrox/Mg Hydrox/Simethicone 30 ml 01/05/23 00:46 Mag Hydrox/Al Hydrox/Simeth 30 Ml Udc PO Q6H PRN Indigestion Albuterol 2.5 mg 01/05/23 02:00 01/07/23 13:55 Albuterol Sulfate Neb 2.5 Mg/3 Ml Inh INHALATION 2.5 mg Q6HRT TATIANA Administration Albuterol 2 puff 01/05/23 09:00 Albuterol Sulfate (*Sp) Aerosol 1 Puff INHALATION QID PRN Shortness Of Breath Carvedilol 6.25 mg 01/05/23 09:00 01/07/23 10:06 Carvedilol 6.25 Mg Tablet PO 6.25 mg Q12HR TATIANA Administration Diazepam 5 mg 01/05/23 21:00 01/06/23 20:35 Diazepam (*Crx) 5 Mg Tablet PO 5 mg HS TATIANA Administration Diazepam 5 mg 01/06/23 12:50 01/06/23 23:10 Diazepam (*Crx) 5 Mg Tablet PO 5 mg Q8H PRN Administration Agitation Enoxaparin Sodium 40 mg 01/07/23 09:00 01/07/23 10:21 Enoxaparin 40 Mg/0.4 Ml Syringe SUB-Q 40 mg DAILY TATIANA Administration Famotidine 20 mg 01/06/23 21:00 01/07/23 10:06 Famotidine 20 Mg Tablet PO 20 mg Q12HR TATIANA Administration Finasteride 5 mg 01/05/23 09:00 01/07/23 10:06 Finasteride 5 Mg Tablet PO 5 mg DAILY TATIANA Administration Guaifenesin 600 mg 01/05/23 09:00 01/07/23 10:06 Guaifenesin 12 Hr 600 Mg Tabcr PO 600 mg Q12HR TATIANA Administration Morphine Sulfate 15 mg 01/05/23 09:00 01/07/23 10:09 Morphine Sulfate (*Crx) 15 Mg Tabcr PO Not Given Q12HR TATIANA Naloxone HCl 0.1 mg 01/06/23 11:58 Naloxone Hcl 0.4 Mg/Ml Vial IV PUSH Q2M PRN Opiate Reversal Nicotine 1 patch 01/06/23 14:25 01/07/23 10:14 Nicotine (*Pbkc) 21 Mg Patch TRANSDERM 1 patch DAILY TATIANA Administration Ondansetron HCl 4 mg 01/06/23 11:58 Ondansetron Inj 4 Mg/2 Ml Vial IV PUSH Q4H PRN Nausea And Vomiting Oxycodone HCl 10 mg 01/05/23 00:44 01/07/23 10:12 Oxycodone Hcl (*Crx) 5 Mg Tab Ir PO 10 mg Q4H PRN Administration Pain Polyethylene Glycol 17 gm 01/07/23 09:00 01/07/23 10:07 Polyethylene Glycol 3350 17 Gm Powd.Pack PO 17 gm QAM TATIANA Administration Predn
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
[2023-01-07] MEDS: TAMSULOSIN HCL 0.4 MG CAPSULE PO (20:21)
[2023-01-07] MEDS: diazePAM (*CRX) 5 MG TABLET PO (20:21)
[2023-01-08] VITALS (11 sets, daily range): BP systolic 133–174; BP diastolic 70–74; PULSE 67–82; RESP 17–20; TEMP 36.2–37.1; O2SAT 96–99
[2023-01-08] MEDS: oxyCODONE HCL (*CRX) 5 MG TAB IR 10 MG PO ×3 (01:30→13:29)
[2023-01-08] MEDS: ALBUTEROL SULFATE NEB 2.5 MG/3 ML INH INHALATION ×3 (03:22→15:01)
[2023-01-08 06:05] LABS: Hematocrit 34.2 % (42.0-52.0); Hemoglobin 11.1 g/dL (14.0-18.0); Mean Corpuscular HGB Conc 32.5 g/dl (32-36); Mean Corpuscular Hemoglobin 31.2 pg (26-34); Mean Corpuscular Volume 96.1 fl (80-100); Mean Platelet Volume 9.8 fl (7.4-10.4); Platelet Count Result 236 k/mm3 (150-375); Red Blood Count 3.56 M/mm3 (4.6-6.20); Red Cell Distribution Width 13.8 % (11.5-14.5); White Blood Count 10.7 K/mm3 (4.5-10.0)
[2023-01-08 06:16] LABS: Anion Gap 5 mmol/L (8-16); Blood Urea Nitrogen 16 mg/dL (9-20); Calcium 8.6 mg/dL (8.4-10.2); Carbon Dioxide 33 mmol/L (22-30); Chloride 96 mmol/L (98-107); Estimated CRCL calculation 91 ml/min; Estimated Glomerular Filt Rate > 60; Glucose 116 mg/dL (65-110); Magnesium 2.1 mg/dL (1.6-2.3); Potassium 3.8 mmol/L (3.4-5.0); Sodium 134 mmol/L (137-145)
[2023-01-08] MEDS: polyethylene glycoL 3350 17 GM POWD.PACK PO (08:36)
[2023-01-08] MEDS: carvediloL 6.25 MG TABLET PO (08:37)
[2023-01-08] MEDS: FAMOTIDINE 20 MG TABLET PO (08:37)
[2023-01-08] MEDS: SACUBITRIL/VALSARTAN 24-26 MG TABLET 1 TAB PO (08:37)
[2023-01-08] MEDS: guaiFENesin 12 HR 600 MG TABCR PO (08:37)
[2023-01-08] MEDS: predniSONE 10 MG TABLET PO (08:37)
[2023-01-08] MEDS: FINASTERIDE 5 MG TABLET PO (08:37)
[2023-01-08] MEDS: SENNA/DOCUSATE SODIUM TABLET 2 TAB PO (08:37)
--- NOTE | 2023-01-08 09:09 | PM.PNORT ---
Progress Note: A&P Assessment and Plan (1) Femoral neck fracture: Qualifiers: Encounter type: subsequent encounter Fracture healing: with routine healing Fracture type: closed Laterality: left Qualified Code(s): S72.002D - Fracture of unspecified part of neck of left femur, subsequent encounter for closed fracture with routine healing Code(s): S72.009A - Fracture of unspecified part of neck of unspecified femur, initial encounter for closed fracture Status: Acute Assessment and Plan: POD #2 : Left Hip Hemiarthroplasty Continue PT/OT. WBAT. Walker. HIGH FALL RISK. Continue pain control. Ice Hip. Protect skin. DVT prophylaxis with Lovenox. SCDs. Incentive Spirometry Use reviewed. Monitor Dressing. Change prior to discharge. Bowel Regimen. Dispo: SNF pending progress with PT/OT and medical clearance 6 week follow up arranged in the outpatient ortho clinic. (2) End stage chronic obstructive pulmonary disease: Code(s): J44.9 - Chronic obstructive pulmonary disease, unspecified Status: Acute (3) COPD (chronic obstructive pulmonary disease): Qualifiers: COPD type: unspecified COPD Qualified Code(s): J44.9 - Chronic obstructive pulmonary disease, unspecified Code(s): J44.9 - Chronic obstructive pulmonary disease, unspecified Status: Acute (4) Hypertension: Code(s): I10 - Essential (primary) hypertension Status: Acute (5) Congestive heart failure: Code(s): I50.9 - Heart failure, unspecified Status: Acute Subjective Subjective Date/Time Seen: 01/08/23 09:09 Post Op day: 2 Interval history: POD #2: Left Hip Bipolar Pain well controlled. Sitting up in bed eating breakfast. Anxiously awaiting PT/OT. Review of Systems Constitutional: Constitutional: Denies chills, Denies fatigue, Denies fever(s), Denies night sweats and Denies weakness Cardiovascular: Cardiovascular: Denies chest pain, Denies lightheadedness, Denies palpitations and Denies dyspnea Respiratory: Respiratory: Denies cough, Denies dyspnea and Denies wheezing Gastrointestinal: Gastrointestinal: Denies abdominal pain, Denies diarrhea, Denies nausea and Denies vomiting Musculoskeletal: Musculoskeletal: Reports arthralgias (left hip ), Reports joint swelling (left hip ) and Denies numbness Neurologic: Denies numbness and Denies weakness Endocrine: Endocrine: Denies fatigue and Denies palpitations Allergic/Immunologic: Allergic/Immunologic: Denies wheezing Exam Const: General: comfortable and no acute distress Orientation/consciousness: patient oriented x3 Limitations: no limitations Cardio: Rate: regular rate Rhythm: regular rhythm GI: Inspection: non-distended Skin: General skin exam: normal color and wounds noted (incision left hip C/D/I ) Wounds: wounds noted (incision left hip C/D/I ) Neuro: General: patient oriented x3 Extrem: Left lower extremity: hip/thigh Details: tenderness Location: of the hip Location: laterally and anteriorly, swelling (thigh soft ) Location: of the hip (lateral. ), abnormal ROM (limitations with internal/external rotation and flexion/extension due to recent surgical intervention ) and other (incision lateral hip c/d/i. ), knee Details: normal to inspection and normal ROM; no tenderness and no swelling, lower leg (Negative Robert's Sign ) Details: no edema, ankle (+ankle dorsiflexion/plantarflexion ) Details: normal to inspection, no edema and normal ROM; no tenderness, no swelling and no warmth and foot Details: normal capillary refill, toes with normal ROM, vascular exam Details: dorsalis pedis pulse present and motor-sensory exam light-touch normal in all toes; no tenderness, no ecchymosis and no crepitus Psych: Mental Status: mental status grossly normal Affect: normal affect Objective Data Vital Signs Vital Signs: Vital Signs - 24 hr 01/07/23 10:06 01/07/23 09:43 01/07/23 13:43 Temperature 36.8 C 36.6 C
--- NOTE | 2023-01-08 13:18 | PM.DS ---
DS: Admitting Diagnosis Discharge Date 01/08/23 Admitting Diagnosis fall at home DS: Discharge Diagnosis Discharge Diagnosis (1) Femoral neck fracture: Qualifiers: Encounter type: subsequent encounter Fracture type: closed Laterality: left Fracture healing: with routine healing Qualified Code(s): S72.002D - Fracture of unspecified part of neck of left femur, subsequent encounter for closed fracture with routine healing Code(s): S72.009A - Fracture of unspecified part of neck of unspecified femur, initial encounter for closed fracture Status: Acute (2) End stage chronic obstructive pulmonary disease: Code(s): J44.9 - Chronic obstructive pulmonary disease, unspecified Status: Acute DS: Summary Hospital Course Hospital Course: 67M w/ end stage COPD/emphysema on 5L via NC at home on hospice and other comorbidities presented after fall at home, twisting his left hip and presented with pain. He was found to have a displaced, angulated and externally rotated transcervical fx of proximal left femur. On 01/08/23 he underwent left hip hemiarthroplasty with bipolar prosthesis w/o complication with Dr. Caicedo orthopedic surgeon. Postop, patient declined to go to acute rehab at [facility] on many occasions. He wants to return home where he is comfortably, in spite of being told the risk of not participating with acute rehab. He understood. He was mentally competent, able to communicate clearly about his ongoing issues, risks, and benefits. He will return home with hospice care and home health and PT with his usual medications with the addition of lovenox for DVT prophylaxis. Follow up with ortho in 6 weeks. DNR while he was here. More than 30 minutes spent on discharge planning and documentation. Time Spent with Patient Time attestation: Total time spent providing and/or coordinating discharge services: Exam Const: General: comfortable and no acute distress Eyes: Pupils: Equal, round and reactive pupils present Neck: Neck: supple Resp: Effort & Inspection: normal respiratory effort Auscultation: clear to auscultation bilaterally Cardio: Rate: regular rate Rhythm: regular rhythm Heart sounds: no gallops, no murmurs and no rubs GI: GI Palp: Yes Soft to palpation Extrem: General: no edema DS: Data Data Completed and Pending Labs on day of discharge: Labs from last 24 hours 01/08/23 05:57 WBC 10.7 H RBC 3.56 L Hgb 11.1 L Hct 34.2 L MCV 96.1 MCH 31.2 MCHC 32.5 RDW 13.8 Plt Count 236 MPV 9.8 Sodium 134 L Potassium 3.8 Chloride 96 L Carbon Dioxide 33 H Anion Gap 5 L BUN 16 Creatinine 0.60 L Estim Creat Clear Calc 91 Estimated GFR > 60 Glucose 116 H Calcium 8.6 Magnesium 2.1 Discharge Plan Discharge Attending physician on discharge: Tameka Clemente Consulting providers: Brian Oconnor Discharging Clinician: Tameka Clemente Patient Disposition: Home Health Service Activity: may shower, no driving and follow weight bearing status Diet: as tolerated Wound Care Instructions: follow printed instructions Discharge Instructions: Postoperative Hip Fracture Instructions Dr. Brian Oconnor [phone] Dressing to be changed daily with an island dressing beginning on post op day #2. May stop dressing changes at post op day #14. No sutures/tracey will need to be removed. Can allow Dermabond to fall off naturally. Weight bearing: Weight bearing as tolerated. You may shower with your dressing but do not submerge in a bath tub. Do not drive or operate machinery until you are released by your surgeon. Do not walk without a walker for any reason until you are released by your surgeon. DVT prophylaxis x28 days post op. Continue to apply ice to the hip intermittently for additional pain relief. Protect your skin with a towel or pillow case. Continue to follow strict hip fracture precautions. Please contact our office with
--- NOTE | 2023-01-13 13:25 | PCCCNOTE ---
Call received from sister Vibha requesting a new prescription for the shot pt is supposed to receive to prevent blood clots. She states pt went home after discharge but they discovered he could not manage there alone and went to a rehab facility. They found it to be inadequate and have taken him out. She took him back home. She is waiting for [facility] to return a call she placed so they can resume services. She left the prescription at the facility and won't be able to get it back until Sunday. Informed her that if he goes back on hospice, they may not want him on that med, and it might be best to wait for their call. Call placed to [place] and spoke with pediatric nurse practitioner. They do not feel pt is safe to be home alone and will not admit him if that will be the situation. Vibha called and informed her of their concerns. She states she plans to stay with pt 11/09 and provide all care. She will wait for their call and inform them of her plans .
== END 2023-01-08 16:45 | disposition hospice, home (50) | DRG 522 ==
LOC: ANHED 21:00 → ANH2MED 23:18
PROVIDERS: Internal Medicine Critical Care Medicine; Orthopaedic Surgery; Admitting Provider Internal Medicine; Emergency Provider Preventive Medicine Aerospace Medicine; Visit Provider General Practice
PROC: 0SRS01A Replacement of Left Hip Joint, Femoral Surface with Metal Synthetic Substitute, Uncemented, Open Approach (ICD-10-PCS; CPT 27125; principal; 2023-01-06 09:00)
DX: S72.032A Displaced midcervical fracture of left femur, initial encounter for closed fracture (principal); M19.90 Unspecified osteoarthritis, unspecified site; I50.9 Heart failure, unspecified; I11.0 Hypertensive heart disease with heart failure; J44.9 Chronic obstructive pulmonary disease, unspecified; N40.0 Benign prostatic hyperplasia without lower urinary tract symptoms; F17.210 Nicotine dependence, cigarettes, uncomplicated; F12.90 Cannabis use, unspecified, uncomplicated; W19.XXXA Unspecified fall, initial encounter; Z99.81 Dependence on supplemental oxygen
CPT/HCPCS: 36415; 71045; 73501; 73502; 80048; 80053; 83735; 85025; 85027; 85610; 85730; 93005; 94640; 96374; 96375; 96376; 97110; 97161; 97166; 97535; 99285; A9270; C1776; G0378; J0171; J0690; J1100; J1170; J1650; J1885; J2250; J2270; J2359; J2371; J2405; J2704; J2795; J3010; J3360; J7030; J7120; J7512

== ENCOUNTER 2023-01-09 06:34 | Emergency (ER) | payer MEDICARE, SELFPAY ==
[2023-01-09 06:34] VITALS: BP 175/81; RESP 16; O2SAT 93
--- NOTE | 2023-01-09 06:42 | ED.MALEGU ---
HPI - Male Genitourinary General Chief complaint: Urogenital-Male <Debbie Lopez MD - Last Filed: 01/09/23 06:53> Stated complaint: urinary retention <Debbie Lopez MD - Last Filed: 01/09/23 06:53> History of Present Illness HPI Narrative: At the emergency department by EMS from home. He had hip placement surgery after a fall at home. He has been home since yesterday afternoon. He has not had any urine output since 4:00 p.m. yesterday. He has been up regularly attempting to pee which is worst in his hip pain. <Debbie Lopez MD - Last Filed: 01/09/23 06:53> Related Data Home medications: Home Medications Medication Instructions Recorded Confirmed albuterol sulfate 90 mcg/actuation 2 puff inhalation QID 01/05/23 01/05/23 aerosol inhaler carvedilol 6.25 mg tablet 6.25 mg PO DAILY 01/05/23 01/05/23 finasteride 5 mg tablet 5 mg PO DAILY 01/05/23 01/05/23 guaifenesin 600 mg tablet, 600 mg PO BID 01/05/23 01/05/23 extended release 12 hr morphine 15 mg tablet,extended 15 mg PO BID 01/05/23 01/05/23 release oxycodone 10 mg tablet 10 mg PO Q4H PRN PAIN 01/05/23 01/05/23 prednisone 10 mg tablet 10 mg PO DAILY 01/05/23 01/05/23 sacubitril 24 mg-valsartan 26 mg 1 tablet PO DAILY 01/05/23 01/05/23 tablet (Entresto) tamsulosin 0.4 mg capsule 0.4 mg PO HS 01/05/23 01/05/23 <Debbie Lopez MD - Last Filed: 01/09/23 06:53> Allergies/Adverse reactions: Allergies Allergy/AdvReac Type Severity Reaction Status Date / Time codeine Allergy Unknown Unknown Verified 01/09/23 06:46 hydrocodone Allergy Unknown Unknown Verified 01/09/23 06:46 lorazepam [From Ativan] AdvReac Irritable Verified 01/09/23 06:46 quetiapine [From Seroquel] AdvReac Confusion Verified 01/09/23 06:46 <Debbie Lopez MD - Last Filed: 01/09/23 06:53> Review of Systems Review of Systems: Review of systems negative except what is documented in the HPI <Debbie Lopez MD - Last Filed: 01/09/23 06:53> PMFSH Past Medical History Medical History: Medical History Arthritis BPH (benign prostatic hyperplasia) Chronic pulmonary disease Closed fracture of neck of left femur Congestive heart failure COPD (chronic obstructive pulmonary disease) CVA (cerebral vascular accident) End stage chronic obstructive pulmonary disease Hypertension Marijuana smoker Smoker <Debbie Lopez MD - Last Filed: 01/09/23 06:53> Social History Social History: Social History Smoking packs per day: 0.3 Smoking cigarettes per day: 6.0 Smoking status: Current every day smoker Tobacco type: cigarettes Alcohol intake: current Drinks per week: 30 Substance use: current Substance use type: marijuana Last use: 01/04/2023 Lack of Transportation: No Lack of Food: Never True Current Housing: I Have Housing Concerned About Future Housing: No Difficulty Paying Gas/Electric Bills: No Difficulty Paying for Meds: No Currently Unemployed: No Education: Trade/Vocational Certificate Difficulty w/ Childcare or Family Care: No Spiritual care concerns: No <Debbie Lopez MD - Last Filed: 01/09/23 06:53> Exam Narrative: GENERAL: Well-appearing, well-nourished, and in no acute distress. Uncomfortable HEAD: Normocephalic, atraumatic. EYES: PERRLA and EOMI. ENT: Nares clear, no rhinorrhea or epistaxis. Mucous membranes moist. NECK: Supple. CHEST: Clear to auscultation. No respiratory distress. HEART: Regular rate and rhythm. ABDOMEN: Soft, nontender, nondistended. EXTREMITIES: Normal range of motion. No edema. SKIN: Warm, dry, no rash. NEURO: No focal deficits. Alert and oriented x3. PSYCH: Normal mood and affect. <Debbie Lopez MD - Last Filed: 01/09/23 06:53> Course Reevaluation(s) Reevaluation #1: Patient will have a Mckinley catheter in place and is draining adequately. UA di
[2023-01-09 07:05] LABS: Appearance Urine Cloudy (Clear); Bacteria Urine None Seen /hpf; Bilirubin Urine Negative (Negative); Blood Urine Negative (Negative); Color Urine Dark Yellow (Yellow); Glucose Urine UA Negative (Negative); Ketones Urine Trace mg/dL (Negative); Leukocyte Esterase Ur 1+ LEU/UL (Negative); Need Manual Microscopic Reviewed; Nitrate Urine Negative (Negative); Non Pathogenic Casts 0-2; Protein Urine 1+ mg/dL (Negative); Specific Grav Ur 1.028 (1.001-1.035); Squamous Epithelial Cell Urine None seen /hpf (Few); WBC Urine 0-5 /hpf; pH Urine 6.5 (5.0-9.0)
--- NOTE | 2023-01-09 07:12 | PC.NURSE ---
report given to SHELBI Chin at this time.
[2023-01-09 07:14] LABS: Add Urine Microscopic? YES
[2023-01-09 09:09] VITALS: BP 170/85; PULSE 80; RESP 14; O2SAT 97
== END 2023-01-09 09:11 | disposition home or self-care (01) ==
LOC: ANHED 06:58
PROVIDERS: Emergency Provider Emergency Medicine
DX: R33.9 Retention of urine, unspecified (principal); F17.210 Nicotine dependence, cigarettes, uncomplicated; M19.90 Unspecified osteoarthritis, unspecified site; N40.0 Benign prostatic hyperplasia without lower urinary tract symptoms; I11.0 Hypertensive heart disease with heart failure; I50.9 Heart failure, unspecified; J44.9 Chronic obstructive pulmonary disease, unspecified
CPT/HCPCS: 51702; 81001; 99283

== ENCOUNTER 2023-07-07 17:14 | Emergency (ER) | payer MEDICARE, SELFPAY ==
--- NOTE | ~2023-07-07 | XR_ITS ---
EXAMINATION: XR chest 1V portable Exam Date/Time: 07/07/2023 18:01 CDT HISTORY: cough, EMELY Comparison: 01/04/2023. RESULT: Lines, tubes, and devices: None. Lungs and pleura: Biapical pleural scarring and senescent change. Minimal bibasilar atelectasis/scar . No focal consolidation, pleural effusion, or pneumothorax. Cardiomediastinal silhouette: Stable. Other: No acute osseous or upper abdominal finding. IMPRESSION: No acute cardiopulmonary process. Reviewed, dictated and finalized at location K.
[2023-07-07 17:05] VITALS: BP 132/71; PULSE 71; RESP 12; TEMP 37.6; O2SAT 99
--- NOTE | 2023-07-07 17:20 | ECG_ITS ---
SEE SCANNED COPY FOR CONFIRMED REPORT MTDD
[2023-07-07 17:26] VITALS: O2SAT 99
[2023-07-07 17:28] VITALS: PULSE 71
[2023-07-07] MEDS: IPRATROPIUM BR 0.02% INH SOLN 0.5 MG/2.5 ML VIAL 1 MG INHALATION (17:31)
[2023-07-07] MEDS: ALBUTEROL SULFATE NEB 2.5 MG/3 ML INH 15 MG INHALATION (17:31)
[2023-07-07 17:33] VITALS: PULSE 74; RESP 20
--- NOTE | 2023-07-07 17:41 | ED.SOB ---
HPI - SOB/Dyspnea General Chief Complaint: Shortness of Breath/Dyspnea Stated Complaint: SOB, weakness History of Present Illness HPI Narrative: Patient presents here with shortness of breath worsened last few days, he is on oxygen at baseline, has a history of COPD. No chest pain. Did have recent falls. Related Data Home Medications Medication Instructions Recorded Confirmed albuterol sulfate 90 mcg/actuation 2 puff inhalation QID 01/05/23 05/17/23 aerosol inhaler carvedilol 6.25 mg tablet 6.25 mg PO DAILY 01/05/23 05/17/23 finasteride 5 mg tablet 5 mg PO DAILY 01/05/23 05/17/23 guaifenesin 600 mg tablet, 600 mg PO BID 01/05/23 05/17/23 extended release 12 hr morphine 15 mg tablet,extended 15 mg PO BID 01/05/23 05/17/23 release oxycodone 10 mg tablet 10 mg PO Q4H PRN PAIN 01/05/23 05/17/23 prednisone 10 mg tablet 10 mg PO DAILY 01/05/23 05/17/23 sacubitril 24 mg-valsartan 26 mg 1 tablet PO DAILY 01/05/23 05/17/23 tablet (Entresto) tamsulosin 0.4 mg capsule 0.4 mg PO HS 01/05/23 05/17/23 Allergies Allergy/AdvReac Type Severity Reaction Status Date / Time codeine Allergy Unknown Unknown Verified 07/07/23 17:27 hydrocodone Allergy Unknown Unknown Verified 07/07/23 17:27 lorazepam [From Ativan] AdvReac Irritable Verified 07/07/23 17:27 quetiapine [From Seroquel] AdvReac Confusion Verified 07/07/23 17:27 Review of Systems Review of Systems: All systems reviewed & are unremarkable except as noted in HPI and below PMFSH Past Medical History Medical History Arthritis BPH (benign prostatic hyperplasia) Chronic pulmonary disease Closed fracture of neck of left femur Congestive heart failure COPD (chronic obstructive pulmonary disease) CVA (cerebral vascular accident) End stage chronic obstructive pulmonary disease Hypertension Marijuana smoker Smoker Social History Social History Smoking packs per day: 0.3 Smoking cigarettes per day: 6.0 Smoking status: Current every day smoker Tobacco type: cigarettes Alcohol intake: current Drinks per week: 30 Substance use: current Substance use type: marijuana Last use: 01/04/2023 Lack of Transportation: No Lack of Food: Never True Current Housing: I Have Housing Concerned About Future Housing: No Difficulty Paying Gas/Electric Bills: No Difficulty Paying for Meds: No Currently Unemployed: No Education: Trade/Vocational Certificate Difficulty w/ Childcare or Family Care: No Spiritual care concerns: No Exam Narrative: EXAMINATION OF ORGAN SYSTEMS/BODY AREAS: Constitutional: Vital signs per nursing GENERAL:[No acute distress, non-toxic appearing.] Eyes closed. HEAD: Normal with no signs of head trauma. EYES: Eyes closed ENT: Hearing grossly intact LUNGS: Wheezing bilaterally HEART: [Regular rate and rhythm] ABD: [Soft], [nontender to palpation] EXT: Normal range of motion SKIN: Healing scabs to lateral knees bilaterally NEURO: [Alert and oriented x 3. No gross focal sensory or strength deficits.] PSYCH: Normal affect Course Vital Signs Vital signs: Vital Signs Temperature 99.6 F 07/07/23 17:05 Pulse Rate 71 07/07/23 17:05 Respiratory Rate 12 07/07/23 17:05 Blood Pressure 132/71 07/07/23 17:05 Pulse Oximetry 99 07/07/23 17:05 Oxygen Delivery Nasal Cannula 07/07/23 17:05 Oxygen Flow Rate 2 07/07/23 17:05 Temperature 99.6 F 07/07/23 17:05 Pulse Rate 77 07/07/23 19:31 Respiratory Rate 9 L 07/07/23 19:31 Blood Pressure 125/69 07/07/23 19:31 Pulse Oximetry 99 07/07/23 19:31 Oxygen Delivery Nasal Cannula 07/07/23 17:26 Oxygen Flow Rate 2 07/07/23 17:26 MDM - SOB/Dyspnea MDM Narrative Medical decision making narrative: 1) Differential diagnosis: COPD, pneumonia, ACS, CHF 2) Comorbidities: COPD, CHF 3) External notes reviewed: Admission records 4) History sources independently obtained
[2023-07-07 18:09] LABS: Anion Gap 4 mmol/L (4-12); Blood Urea Nitrogen 28 mg/dL (9-20); Calcium 8.1 mg/dL (8.4-10.2); Carbon Dioxide 24 mmol/L (22-30); Chloride 107 mmol/L (98-107); Estimated CRCL calculation 69 ml/min; Estimated Glomerular Filt Rate > 60; Glucose 92 mg/dL (65-110); Potassium 4.4 mmol/L (3.4-5.0); Sodium 135 mmol/L (137-145)
[2023-07-07 19:08] VITALS: PULSE 81; RESP 12
[2023-07-07 19:22] LABS: Basophils Percent Auto 0.1 % (0.2-1.2); Eosinophils Absolute Auto 0.1 K/mm3 (0-0.3); Eosinophils Percent Auto 0.4 % (0-4.4); Hematocrit 31.6 % (42.0-52.0); Hemoglobin 10.1 g/dL (14.0-18.0); Immature Granulocyte Absolute 0.14 K/mm3 (0.00-0.031); Lymphocytes Absolute Auto 1.13 K/mm3 (0.9-3.2); Lymphocytes Percent Auto 7.8 % (18.3-44.2); Mean Corpuscular Hemoglobin 31.4 pg (26-34); Mean Corpuscular Volume 98.1 fl (80-100); Mean Platelet Volume 9.8 fl (7.4-10.4); Monocytes Absolute Auto 0.9 K/mm3 (0.1-0.6); Neutrophils Absolute Auto 12.3 K/mm3 (1.3-6.7); Neutrophils Percent Auto 84.7 % (45.5-73.1); Platelet Count Result 313 k/mm3 (150-375); Red Blood Count 3.22 M/mm3 (4.6-6.20); Red Cell Distribution Width 14.7 % (11.5-14.5); White Blood Count 14.5 K/mm3 (4.5-10.0)
[2023-07-07 19:31] VITALS: BP 125/69; PULSE 77; RESP 9; O2SAT 99
[2023-07-07] MEDS: DOXYCYCLINE HYCLATE 100 MG TABLET PO (19:40)
== END 2023-07-07 21:13 | disposition home or self-care (01) ==
PROVIDERS: Emergency Provider Emergency Medicine
DX: J44.1 Chronic obstructive pulmonary disease with (acute) exacerbation (principal); R94.31 Abnormal electrocardiogram [ECG] [EKG]; F17.210 Nicotine dependence, cigarettes, uncomplicated; M19.90 Unspecified osteoarthritis, unspecified site; N40.0 Benign prostatic hyperplasia without lower urinary tract symptoms; I11.0 Hypertensive heart disease with heart failure; I50.9 Heart failure, unspecified; Z86.73 Personal history of transient ischemic attack (TIA), and cerebral infarction without residual deficits
CPT/HCPCS: 36415; 71045; 80048; 85025; 93005; 94640; 96365; 99284; A9270; J0696